=== PATIENT | male | born 1945 | race Caucasian/White ===

== ENCOUNTER 2021-05-07 04:07 | Emergency (ER) | payer MEDICARE, OTHER ==
[2021-05-07] MEDS ORDERED: Aspirin 81 MG Tab.Chew PO ONE (04:21)
--- NOTE | 2021-05-07 04:27 | EDM.PDOC ---
ED HPI GENERAL MEDICAL PROBLEM - General Chief Complaint: Chest Pain Stated Complaint: CHEST PAINS, UNABLE TO SLEEP Time Seen by Provider: 05/07/21 04:25 Source of Information: Reports: Patient History Limitations: Reports: No Limitations - History of Present Illness INITIAL COMMENTS - FREE TEXT/NARRATIVE: This 76 yo male patient reports to the ED due to pains in his right abdomen that radiates up to his right chest. The patient reports he has been having intermittent pains over the past month, but increased symptoms that started last night at about 1700. The patient has not been seen in the clinic for these symptoms and has not attempted to take anything for his symptoms over the night. The patient reports he could not sleep due to the "crampy pain". Duration: Hour(s): (increased symptoms), Week(s): (Intermittent), Constant, Intermittent Location: Reports: Chest, Abdomen Quality: Reports: Other ("crampy" ) Severity: Moderate Improves with: Reports: None Worsens with: Reports: Eating Context: Reports: Other Associated Symptoms: Reports: No Other Symptoms Bilateral Lower Anterior Chest Pain Score (Numeric/FACES): 3 - Related Data Allergies Allergy/AdvReac Type Severity Reaction Status Date / Time niacin Allergy Hives Verified 05/07/21 04:14 [From Niaspan Extended-Release] rabeprazole [From Aciphex] AdvReac Diarrhea Verified 05/07/21 04:14 Home Meds: Home Meds Aspirin [Halfprin] 81 mg PO DAILY 10/06/13 [History] Bisoprolol/Hydrochlorothiazide [Ziac 10-6.25 mg Tablet] 6.25 - 10 each PO BID 10/06/13 [History] Ferrous Sulfate [Feosol] 325 mg PO DAILY 10/06/13 [History] Simvastatin [Zocor] 40 mg PO BEDTIME 10/06/13 [History] Cholecalciferol (Vitamin D3) [Vitamin D3] 2,000 units PO DAILY 01/07/18 [History] Empagliflozin/Linagliptin [Glyxambi 10 mg-5 mg Tablet] 5 - 10 mg PO DAILY 01/07/18 [History] Fenofibrate Nanocrystallized [Tricor] 145 mg PO DAILY 01/07/18 [History] Insulin Glarg,Human.Rec.Analog [Lantus Solostar] 54 units INJECT BEDTIME 01/07/18 [History] Omeprazole 40 mg PO DAILY 01/07/18 [History] Telmisartan/Hydrochlorothiazid [Micardis Hct 40-12.5 mg Tablet] 0.5 ea PO DAILY 01/07/18 [History] Finasteride [Proscar] 5 mg PO DAILY 05/07/21 [History] Insulin Aspart [Novolog Flexpen] 17 units SUBCUT TIDAC 05/07/21 [History] Melatonin 5 mg PO BEDTIME 05/07/21 [History] Past Medical History Cardiovascular History: Reports: High Cholesterol, Hypertension Genitourinary History: Reports: BPH Neurological History: Reports: Other (See Below) Other Neuro History: seeing Dr. Redd for a tremor soon Endocrine/Metabolic History: Reports: Diabetes, Type II - Past Surgical History Cardiovascular Surgical History: Reports: Coronary Artery Stent Social & Family History - Tobacco Use Tobacco Use Status *Q: Never Tobacco User - Caffeine Use Caffeine Use: Reports: Coffee - Recreational Drug Use Recreational Drug Use: No ED ROS GENERAL - Review of Systems Review Of Systems: Comprehensive ROS is negative, except as noted in HPI. ED EXAM, GENERAL - Physical Exam Exam: See Below Exam Limited By: No Limitations General Appearance: Alert, WD/WN, Anxious, Mild Distress, Obese Eye Exam: Bilateral Eye: EOMI, Normal Fundi, PERRL Ears: Normal External Exam, Normal Canal, Hearing Grossly Normal, Normal TMs Nose: Normal Inspection, Normal Mucosa, No Blood Throat/Mouth: Normal Inspection, Normal Lips, Normal Teeth, Normal Gums, Normal Oropharynx, Normal Voice, No Airway Compromise Head: Atraumatic, Normocephalic Neck: Normal Inspection, Supple, Non-Tender, Full Range of Motion Respiratory/Chest: No Respiratory Distress, Lungs Clear, Normal Breath Sounds, No Accessory Muscle Use, Chest Non-Tender Cardiovascular: Normal Peripheral Pulses, Regular Rate, Rhythm, No Edema, No Gallop, No JVD, No Murmur, No Rub GI/Abdominal: Tender (right mid abdomen with tenderness extending to just below the ribs on the right), Other (Obese) (Male) Exam: Deferred Rectal (Males) Exam: Deferred Back Exam: Normal Inspection, Full Range of Motion, NT Extremities: Normal Inspection, Normal Range of Motion, Non-Tender, Normal Capillary Refill, No Pedal Edema Neurological: Alert, Oriented, CN II-XII Intact, Normal Cognition, Normal Gait, Normal Reflexes, No Motor/Sensory Deficits Psychiatric: Normal Affect, Anxious Skin Exam: Warm, Dry, Intact, Normal Color, No Rash Lymphatic: No Adenopathy #1 Interpretation EKG Date: 05/07/21 Time: 04:12 Rhythm: Other (RBBB) Rate (Beats/Min): 63 QRS: RBBB Comparison: Change From Previous EKG (Previous EKG was in 2013 in this facility) Course - Vital Signs Last Recorded V/S: Last Vital Signs Temp 97.4 F 05/07/21 04:14 Pulse 73 05/07/21 04:14 Resp 16 05/07/21 04:14 BP 162/61 H 05/07/21 04:14 Pulse Ox 96 05/07/21 04:14 - Orders/Labs/Meds Orders: Active Orders 24 hr Category Date Time Status CULTURE BLOOD [BC] Stat Lab 05/07/21 04:25 Results Labs: Laboratory Tests 05/07/21 05/07/21 05/07/21 Range/Units 04:25 04:25 04:25 WBC 8.6 (5.0-10.0) 10^3/uL RBC 4.54 L (4.6-6.2) 10^6/uL Hgb 13.8 L (14.0-18.0) g/dL Hct 41.8 (40.0-54.0) % MCV 92.1 D (80-100) fL MCH 30.4 (27.0-34.0) pg MCHC 33.0 (33.0-35.0) g/dL Plt Count 204 (150-450) 10^3/uL Neut % (Auto) 67.6 (42.2-75.2) % Lymph % (Auto) 19.8 L (20.5-50.1) % Sebastian % (Auto) 10.1 H (2-8) % Eos % (Auto) 2.0 (1.0-3.0) % Baso % (Auto) 0.5 (0.0-1.0) % D-Dimer, Quantitative 113 (0-400) ng/mL Sodium 136 (136-145) mmol/L Potassium 4.2 (3.5-5.1) mmol/L Chloride 102 (98-107) mmol/L Carbon Dioxide 23 (21-32) mmol/L Anion Gap 15.2 H (7-13) mEq/L BUN 46 H (7-18) mg/dL Creatinine 2.36 H (0.70-1.30) mg/dL Est Cr Clr Drug Dosing 25.80 mL/min Estimated GFR (MDRD) 27 BUN/Creatinine Ratio 19.5 (No establ ref range) Glucose 220 H (70-99) mg/dL Lactic Acid (0.4-2.0) mmol/L Calcium 8.8 (8.5-10.1) mg/dL Total Bilirubin 0.3 (0.2-1.0) mg/dL AST 23 (15-37) U/L ALT 31 (16-63) U/L Alkaline Phosphatase 69 (46-116) U/L Troponin I High Sens 6 (<=76) pg/mL Total Protein 6.6 (6.4-8.2) g/dL Albumin 3.5 (3.4-5.0) g/dL Globulin 3.1 Albumin/Globulin Ratio 1.1 05/07/21 Range/Units 04:25 WBC (5.0-10.0) 10^3/uL RBC (4.6-6.2) 10^6/uL Hgb (14.0-18.0) g/dL Hct (40.0-54.0) % MCV (80-100) fL MCH (27.0-34.0) pg MCHC (33.0-35.0) g/dL Plt Count (150-450) 10^3/uL Neut % (Auto) (42.2-75.2) % Lymph % (Auto) (20.5-50.1) % Sebastian % (Auto) (2-8) % Eos % (Auto) (1.0-3.0) % Baso % (Auto) (0.0-1.0) % D-Dimer, Quantitative (0-400) ng/mL Sodium (136-145) mmol/L Potassium (3.5-5.1) mmol/L Chloride (98-107) mmol/L Carbon Dioxide (21-32) mmol/L Anion Gap (7-13) mEq/L BUN (7-18) mg/dL Creatinine (0.70-1.30) mg/dL Est Cr Clr Drug Dosing mL/min Estimated GFR (MDRD) BUN/Creatinine Ratio (No establ ref range) Glucose (70-99) mg/dL Lactic Acid 1.8 (0.4-2.0) mmol/L Calcium (8.5-10.1) mg/dL Total Bilirubin (0.2-1.0) mg/dL AST (15-37) U/L ALT (16-63) U/L Alkaline Phosphatase (46-116) U/L Troponin I High Sens (<=76) pg/mL Total Protein (6.4-8.2) g/dL Albumin (3.4-5.0) g/dL Globulin Albumin/Globulin Ratio Meds: Medications Discontinued Medications Generic Name Dose Route Start Last Admin Trade Name Freq PRN Reason Stop Dose Admin Aspirin 324 mg 05/07/21 04:21 05/07/21 04:29 Aspirin 81 Mg Tab.Chew PO 05/07/21 04:22 324 mg ONETIME ONE Administration - Radiology Interpretation Free Text/Narrative:: [facility] Final Radiology Report Call: [phone] assistance Online chat: [email or web address] Name: AKASH TELLEZ Age: 76Years M Date: 05/07/2021 SSN: -- : [id number] Study: CR CHEST 1V FRONTAL Requesting Physician: Donald Henao Images: 1 Addl Studies: Provided Clinical History: chest pain Contrast: Contrast Medium: Contrast Amount: Contrast Method: CONFIDENTIALITY STATEMENT This report is intended only for use by the referring physician, and only in accordance with law. If you received this in error, call [phone]. Page 1 of 1 PROCEDURE INFORMATION: Exam: XR Chest Exam date and time: 05/07/2021 4:47 AM Age: 76 years old Clinical indication: Other: Chest pain TECHNIQUE: Imaging protocol: XR of the chest. Views: 1 view. COMPARISON: No relevant prior studies available. FINDINGS: Lungs: Unremarkable. No consolidation. Pleural spaces: Unremarkable. No pleural effusion. No pneumothorax. Heart/Mediastinum: Unremarkable. No cardiomegaly. Bones/joints: Unremarkable. IMPRESSION: No acute findings. Thank you for allowing us to participate in the care of your patient. Dictated and Authenticated by: Maxime Burnette MD 05/07/2021 5:22 AM Central Time ([place] & [place]) Departure - Departure Time of Disposition: 05:28 Disposition: Home, Self-Care 01 Condition: Fair Clinical Impression: Abdominal pain Qualifiers: Abdominal location: right upper quadrant Qualified Code(s): R10.11 - Right upper quadrant pain Instructions: Abdominal Pain, Adult, Gallbladder Eating Plan Forms: ED Department Discharge Care Plan Goals: The patient was advised of the examination, lab, EKG and x-ray results during the visit. The patient was encouraged to avoid high fat meals. If the patient jay s a return of his symptoms, the patient was encouraged to follow-up with his primary care facility to get further evaluation (gallbladder ultrasound) and management. If the patient has any additional symptoms or concerns, the patient should either return to the emergency department or visit his primary care facility. Sepsis Event Note (ED) - Evaluation Sepsis Screening Result: No Definite Risk - Focused Exam Vital Signs: Vital Signs Temp Pulse Resp BP Pulse Ox 05/07/21 04:14 97.4 F 73 16 162/61 H 96 - My Orders Last 24 Hours: My Active Orders 05/07/21 04:25 CULTURE BLOOD [BC] Stat - Assessment/Plan Last 24 Hours: My Active Orders 05/07/21 04:25 CULTURE BLOOD [BC] Stat
[2021-05-07 04:59] LABS: ANION GAP 15.2 mEq/L (7-13)
--- NOTE | 2021-05-07 05:22 | CR ---
PROCEDURE INFORMATION: Exam: XR Chest Exam date and time: 05/07/2021 4:47 AM Age: 76 years old Clinical indication: Other: Chest pain TECHNIQUE: Imaging protocol: XR of the chest. Views: 1 view. COMPARISON: No relevant prior studies available. FINDINGS: Lungs: Unremarkable. No consolidation. Pleural spaces: Unremarkable. No pleural effusion. No pneumothorax. Heart/Mediastinum: Unremarkable. No cardiomegaly. Bones/joints: Unremarkable. IMPRESSION: No acute findings.
== END 2021-05-07 05:43 | disposition home or self-care (01) ==
LOC: DL.ED 04:07
DX: R10.11 Right upper quadrant pain (principal); E78.00 Pure hypercholesterolemia, unspecified; I10 Essential (primary) hypertension; E11.9 Type 2 diabetes mellitus without complications; I45.10 Unspecified right bundle-branch block; E66.9 Obesity, unspecified; Z68.33 Body mass index [BMI] 33.0-33.9, adult; Z88.8 Allergy status to other drugs, medicaments and biological substances; Z88.1 Allergy status to other antibiotic agents; Z79.82 Long term (current) use of aspirin; Z79.4 Long term (current) use of insulin; Z79.899 Other long term (current) drug therapy
CPT/HCPCS: 36415; 71045; 80053; 83605; 84484; 85025; 85379; 87040; 93005; 99284; A9270

== ENCOUNTER 2021-05-20 21:42 | Emergency (ER) | payer MEDICARE, OTHER | END 2021-05-21 01:35 | disposition home or self-care (01) | LOC: DL.ED 21:42 | DX: K59.01 Slow transit constipation (principal); L89.321 Pressure ulcer of left buttock, stage 1; E78.00 Pure hypercholesterolemia, unspecified; I10 Essential (primary) hypertension; N40.0 Benign prostatic hyperplasia without lower urinary tract symptoms; E11.9 Type 2 diabetes mellitus without complications; Z88.1 Allergy status to other antibiotic agents; Z88.8 Allergy status to other drugs, medicaments and biological substances; Z79.82 Long term (current) use of aspirin; Z79.4 Long term (current) use of insulin; Z79.899 Other long term (current) drug therapy | CPT/HCPCS: 74018; 99283-25 ==

== ENCOUNTER 2021-11-24 21:59 | Emergency (ER) | payer MEDICARE, OTHER ==
[2021-11-24 23:14] LABS: ANION GAP 19.4 mEq/L (7-13); CHLORIDE,CL 102 mmol/L (98-107); SODIUM,NA 139 mmol/L (136-145)
[2021-11-24 23:15] LABS: ESTIMATED GFR 27 mL/min (>=60)
[2021-11-25] MEDS ORDERED: Sodium Chloride 0.9% 1,000 ML IV ONE (00:35)
[2021-11-25] MEDS ORDERED: Piperacillin/Tazobactam 3.375 GM in Sodium Chloride 0.9% 100 ML IV ONE (01:10)
[2021-11-25] MEDS ORDERED: Acetaminophen 325 MG Tab PO ONE (01:11)
== END 2021-11-25 03:47 ==
LOC: DL.ED 21:59
DX: T79.6XXA Traumatic ischemia of muscle, initial encounter (principal); S20.419A Abrasion of unspecified back wall of thorax, initial encounter; K81.9 Cholecystitis, unspecified; E86.0 Dehydration; L89.152 Pressure ulcer of sacral region, stage 2; I12.9 Hypertensive chronic kidney disease with stage 1 through stage 4 chronic kidney disease, or unspecified chronic kidney disease; E11.22 Type 2 diabetes mellitus with diabetic chronic kidney disease; N18.9 Chronic kidney disease, unspecified; E78.00 Pure hypercholesterolemia, unspecified; Z88.8 Allergy status to other drugs, medicaments and biological substances; Z79.82 Long term (current) use of aspirin; Z79.899 Other long term (current) drug therapy; W17.89XA Other fall from one level to another, initial encounter; Y92.009 Unspecified place in unspecified non-institutional (private) residence as the place of occurrence of the external cause
CPT/HCPCS: 36415; 70450; 71250; 72125; 72128; 72131; 74176; 80053; 80307; 81003; 82150; 82550; 83605; 83690; 83735; 83880; 84484; 85025; 85610; 93005; 96361; 96365; 99285; A9270; J2543; J7030; U0002

== ENCOUNTER 2021-11-29 11:07 | Inpatient (IN) | payer MEDICARE, OTHER ==
[2021-11-29] MEDS ORDERED: Ondansetron 4 MG Tab.DIS PO PRN (14:55)
[2021-11-29] MEDS ORDERED: oxyCODONE 5 MG Tab PO PRN (14:55)
[2021-11-29] MEDS ORDERED: Albuterol 0.083% 2.5 MG/3 ML Neb Soln NEB PRN (14:55)
[2021-11-29] MEDS ORDERED: hydrALAZINE 20 MG/ML SDV IVPUSH PRN (15:07)
[2021-11-29] MEDS ORDERED: Carbidopa/Levodopa 25-100 MG Tab PO SCH (15:15)
[2021-11-29] MEDS ORDERED: amLODIPine 5 MG Tab PO SCH (15:15)
[2021-11-29 15:55] LABS: HEMOGLOBIN A1C 6.6 % (<5.7)
[2021-11-29] MEDS: Carbidopa/Levodopa 25-100 MG Tab PO SCH ×2 (16:08→21:15)
[2021-11-29] MEDS: Insulin Lispro 100 Units/ML 3 ML Vial SUBCUT SCH ×2 (16:14→21:12)
[2021-11-29] MEDS ORDERED: Sodium Chloride 0.45% 1,000 ML IV SCH (16:15)
[2021-11-29] MEDS: Saccharomyces Boulardii (Probiotic) 250 MG Cap PO SCH ×2 (16:27→21:15)
[2021-11-29] MEDS: Phosphorus #1 250 MG Tab PO SCH ×2 (16:27→21:15)
[2021-11-29] MEDS ORDERED: Insulin Lispro 100 Units/ML 3 ML Vial SUBCUT SCH (17:00)
[2021-11-29] MEDS ORDERED: Metoprolol Tartrate 25 MG Tab PO SCH (21:00)
[2021-11-29] MEDS: Heparin Sodium 5,000 Units/ML Vial SUBCUT SCH (21:11)
[2021-11-29] MEDS: Insulin Glarg,Human.Rec.Analog 100 Unit/ML SUBCUT SCH (21:13)
[2021-11-29] MEDS: Cephalexin 500 MG Cap PO SCH (21:15)
[2021-11-29] MEDS: MELATONIN 5 MG PO PRN (21:19)
[2021-11-29] MEDS: Acetaminophen 325 MG Tab PO PRN (22:38)
[2021-11-30] MEDS: Cephalexin 500 MG Cap PO SCH ×3 (05:34→21:19)
[2021-11-30] MEDS: Heparin Sodium 5,000 Units/ML Vial SUBCUT SCH ×3 (05:35→21:23)
[2021-11-30 07:03] LABS: ANION GAP 11.7 mEq/L (7-13)
[2021-11-30] MEDS: Ferrous Sulfate 325 MG Tab PO SCH (08:36)
[2021-11-30] MEDS: Omeprazole 20 MG Cap.CR PO SCH (09:00)
[2021-11-30] MEDS: Aspirin 81 MG Tab.EC PO SCH (09:00)
[2021-11-30] MEDS: Saccharomyces Boulardii (Probiotic) 250 MG Cap PO SCH ×2 (09:00→20:06)
[2021-11-30] MEDS: Carbidopa/Levodopa 25-100 MG Tab PO SCH ×3 (09:01→20:06)
[2021-11-30] MEDS: Finasteride 5 MG Tab PO SCH (09:01)
[2021-11-30] MEDS: Cholecalciferol (Vitamin D3) 25 MCG Tab PO SCH (09:01)
[2021-11-30] MEDS: LINAGLIPTIN PO SCH (09:02)
[2021-11-30] MEDS: EMPAGLIFLOZIN PO SCH (09:02)
[2021-11-30] MEDS: amLODIPine 5 MG Tab PO SCH (09:03)
[2021-11-30] MEDS: Insulin Lispro 100 Units/ML 3 ML Vial SUBCUT SCH ×3 (11:58→21:22)
[2021-11-30] MEDS: MELATONIN 5 MG PO PRN (20:06)
[2021-11-30] MEDS: Insulin Glarg,Human.Rec.Analog 100 Unit/ML SUBCUT SCH (21:20)
[2021-12-01] MEDS: Acetaminophen 325 MG Tab PO PRN ×3 (05:45→21:38)
[2021-12-01] MEDS: Cephalexin 500 MG Cap PO SCH ×3 (05:45→21:38)
[2021-12-01] MEDS: Heparin Sodium 5,000 Units/ML Vial SUBCUT SCH ×3 (05:49→21:43)
[2021-12-01] MEDS: Insulin Lispro 100 Units/ML 3 ML Vial SUBCUT SCH ×4 (07:29→21:45)
[2021-12-01] MEDS: Ferrous Sulfate 325 MG Tab PO SCH (08:00)
[2021-12-01] MEDS ORDERED: hydrALAZINE 25 MG Tab PO PRN (09:07)
[2021-12-01] MEDS: Carbidopa/Levodopa 25-100 MG Tab PO SCH ×3 (09:33→21:38)
[2021-12-01] MEDS: Saccharomyces Boulardii (Probiotic) 250 MG Cap PO SCH ×2 (09:33→21:38)
[2021-12-01] MEDS: Cholecalciferol (Vitamin D3) 25 MCG Tab PO SCH (09:33)
[2021-12-01] MEDS: Omeprazole 20 MG Cap.CR PO SCH (09:33)
[2021-12-01] MEDS: Aspirin 81 MG Tab.EC PO SCH (09:33)
[2021-12-01] MEDS: amLODIPine 5 MG Tab PO SCH (09:33)
[2021-12-01] MEDS: Finasteride 5 MG Tab PO SCH (09:33)
[2021-12-01] MEDS: EMPAGLIFLOZIN PO SCH (09:34)
[2021-12-01] MEDS: LINAGLIPTIN PO SCH (09:34)
[2021-12-01] MEDS: MELATONIN 5 MG PO PRN (21:39)
[2021-12-01] MEDS: Insulin Glarg,Human.Rec.Analog 100 Unit/ML SUBCUT SCH (21:41)
[2021-12-02] MEDS: Cephalexin 500 MG Cap PO SCH ×3 (05:54→21:01)
[2021-12-02] MEDS: Heparin Sodium 5,000 Units/ML Vial SUBCUT SCH ×3 (05:54→21:01)
[2021-12-02] MEDS ORDERED: amLODIPine 5 MG Tab PO SCH (09:00)
[2021-12-02] MEDS: Ferrous Sulfate 325 MG Tab PO SCH (09:04)
[2021-12-02] MEDS: Aspirin 81 MG Tab.EC PO SCH (09:04)
[2021-12-02] MEDS: Saccharomyces Boulardii (Probiotic) 250 MG Cap PO SCH ×2 (09:04→20:31)
[2021-12-02] MEDS: Omeprazole 20 MG Cap.CR PO SCH (09:04)
[2021-12-02] MEDS: Carbidopa/Levodopa 25-100 MG Tab PO SCH ×3 (09:04→20:33)
[2021-12-02] MEDS: Cholecalciferol (Vitamin D3) 25 MCG Tab PO SCH (09:06)
[2021-12-02] MEDS: Finasteride 5 MG Tab PO SCH (09:06)
[2021-12-02] MEDS: Insulin Lispro 100 Units/ML 3 ML Vial SUBCUT SCH ×4 (09:08→20:32)
[2021-12-02] MEDS: EMPAGLIFLOZIN PO SCH (09:09)
[2021-12-02] MEDS: LINAGLIPTIN PO SCH (09:09)
[2021-12-02] MEDS: Insulin Glarg,Human.Rec.Analog 100 Unit/ML SUBCUT SCH (20:32)
[2021-12-02] MEDS: Acetaminophen 325 MG Tab PO PRN (20:35)
[2021-12-02] MEDS: MELATONIN 5 MG PO PRN (20:35)
[2021-12-03] MEDS: Heparin Sodium 5,000 Units/ML Vial SUBCUT SCH ×3 (05:46→21:31)
[2021-12-03] MEDS: Cephalexin 500 MG Cap PO SCH ×3 (05:46→21:30)
[2021-12-03] MEDS: Ferrous Sulfate 325 MG Tab PO SCH (07:56)
[2021-12-03] MEDS: Insulin Lispro 100 Units/ML 3 ML Vial SUBCUT SCH ×4 (09:36→20:51)
[2021-12-03] MEDS: Finasteride 5 MG Tab PO SCH (09:37)
[2021-12-03] MEDS: Omeprazole 20 MG Cap.CR PO SCH (09:37)
[2021-12-03] MEDS: Saccharomyces Boulardii (Probiotic) 250 MG Cap PO SCH ×2 (09:37→20:51)
[2021-12-03] MEDS: Aspirin 81 MG Tab.EC PO SCH (09:37)
[2021-12-03] MEDS: Cholecalciferol (Vitamin D3) 25 MCG Tab PO SCH (09:38)
[2021-12-03] MEDS: Carbidopa/Levodopa 25-100 MG Tab PO SCH ×3 (09:38→20:51)
[2021-12-03] MEDS: LINAGLIPTIN PO SCH (09:38)
[2021-12-03] MEDS: EMPAGLIFLOZIN PO SCH (09:38)
[2021-12-03] MEDS: amLODIPine 5 MG Tab PO SCH (09:39)
[2021-12-03] MEDS: Insulin Glarg,Human.Rec.Analog 100 Unit/ML SUBCUT SCH (20:52)
[2021-12-03] MEDS: MELATONIN 5 MG PO PRN (20:53)
[2021-12-04] MEDS: Cephalexin 500 MG Cap PO SCH (06:05)
[2021-12-04] MEDS: Heparin Sodium 5,000 Units/ML Vial SUBCUT SCH ×3 (06:05→21:30)
[2021-12-04] MEDS: Insulin Lispro 100 Units/ML 3 ML Vial SUBCUT SCH ×3 (08:26→18:25)
[2021-12-04 09:19] LABS: ANION GAP 15.6 mEq/L (7-13)
[2021-12-04] MEDS: Finasteride 5 MG Tab PO SCH (09:46)
[2021-12-04] MEDS: Ferrous Sulfate 325 MG Tab PO SCH (09:46)
[2021-12-04] MEDS: Aspirin 81 MG Tab.EC PO SCH (09:46)
[2021-12-04] MEDS: Cholecalciferol (Vitamin D3) 25 MCG Tab PO SCH (09:46)
[2021-12-04] MEDS: Hydrochlorothiazide 25 MG Tab PO SCH ×2 (09:46→14:43)
[2021-12-04] MEDS: Carbidopa/Levodopa 25-100 MG Tab PO SCH ×3 (09:46→20:34)
[2021-12-04] MEDS: Saccharomyces Boulardii (Probiotic) 250 MG Cap PO SCH ×2 (09:46→20:34)
[2021-12-04] MEDS: Omeprazole 20 MG Cap.CR PO SCH (09:47)
[2021-12-04] MEDS: amLODIPine 5 MG Tab PO SCH (09:47)
[2021-12-04] MEDS: EMPAGLIFLOZIN PO SCH (09:54)
[2021-12-04] MEDS: LINAGLIPTIN PO SCH (09:54)
[2021-12-04] MEDS: Propranolol 20 MG Tab PO SCH (20:34)
[2021-12-04] MEDS: Acetaminophen 325 MG Tab PO PRN (20:34)
[2021-12-04] MEDS ORDERED: Insulin Glarg,Human.Rec.Analog 100 Unit/ML SUBCUT SCH (21:00)
[2021-12-04] MEDS: Insulin Glarg,Human.Rec.Analog 100 Unit/ML SUBCUT SCH (21:28)
[2021-12-04] MEDS: MELATONIN 5 MG PO PRN (21:33)
[2021-12-05] MEDS: Heparin Sodium 5,000 Units/ML Vial SUBCUT SCH ×3 (05:39→21:00)
[2021-12-05] MEDS: Losartan 25 MG Tab PO SCH (08:43)
[2021-12-05] MEDS: Propranolol 20 MG Tab PO SCH ×2 (08:43→20:54)
[2021-12-05] MEDS: Ferrous Sulfate 325 MG Tab PO SCH (08:44)
[2021-12-05] MEDS: Hydrochlorothiazide 25 MG Tab PO SCH ×2 (08:44→13:20)
[2021-12-05] MEDS: Carbidopa/Levodopa 25-100 MG Tab PO SCH ×3 (08:44→20:54)
[2021-12-05] MEDS: amLODIPine 5 MG Tab PO SCH (08:44)
[2021-12-05] MEDS: Aspirin 81 MG Tab.EC PO SCH (08:44)
[2021-12-05] MEDS: Cholecalciferol (Vitamin D3) 25 MCG Tab PO SCH (08:44)
[2021-12-05] MEDS: Finasteride 5 MG Tab PO SCH (08:44)
[2021-12-05] MEDS: EMPAGLIFLOZIN PO SCH (08:45)
[2021-12-05] MEDS: Omeprazole 20 MG Cap.CR PO SCH (08:45)
[2021-12-05] MEDS: LINAGLIPTIN PO SCH (08:45)
[2021-12-05] MEDS: Saccharomyces Boulardii (Probiotic) 250 MG Cap PO SCH ×2 (08:45→20:54)
[2021-12-05] MEDS: Insulin Lispro 100 Units/ML 3 ML Vial SUBCUT SCH ×2 (08:49→11:53)
[2021-12-05] MEDS ORDERED: Losartan 25 MG Tab PO SCH (09:00)
[2021-12-05] MEDS ORDERED: Metoprolol Tartrate 25 MG Tab PO SCH (09:00)
[2021-12-05] MEDS ORDERED: Losartan 50 MG Tab PO SCH (09:00)
[2021-12-05] MEDS ORDERED: Melatonin 3 MG Tab PO PRN ×2 (20:45→20:49)
[2021-12-05] MEDS: MELATONIN 5 MG PO PRN (20:51)
[2021-12-05] MEDS: Insulin Glarg,Human.Rec.Analog 100 Unit/ML SUBCUT SCH (20:53)
[2021-12-06] MEDS: Heparin Sodium 5,000 Units/ML Vial SUBCUT SCH ×3 (06:08→21:47)
[2021-12-06] MEDS: Propranolol 20 MG Tab PO SCH ×2 (08:39→21:47)
[2021-12-06] MEDS: Finasteride 5 MG Tab PO SCH (08:40)
[2021-12-06] MEDS: Losartan 25 MG Tab PO SCH (08:40)
[2021-12-06] MEDS: amLODIPine 5 MG Tab PO SCH (08:41)
[2021-12-06] MEDS: Carbidopa/Levodopa 25-100 MG Tab PO SCH ×3 (08:41→21:47)
[2021-12-06] MEDS: Ferrous Sulfate 325 MG Tab PO SCH (08:42)
[2021-12-06] MEDS: Cholecalciferol (Vitamin D3) 25 MCG Tab PO SCH (08:42)
[2021-12-06] MEDS: Omeprazole 20 MG Cap.CR PO SCH (08:42)
[2021-12-06] MEDS: Hydrochlorothiazide 25 MG Tab PO SCH ×2 (08:42→17:21)
[2021-12-06] MEDS: LINAGLIPTIN PO SCH (08:43)
[2021-12-06] MEDS: EMPAGLIFLOZIN PO SCH (08:43)
[2021-12-06] MEDS: Saccharomyces Boulardii (Probiotic) 250 MG Cap PO SCH ×2 (08:44→21:47)
[2021-12-06] MEDS: Aspirin 81 MG Tab.EC PO SCH (08:45)
[2021-12-06] MEDS: Insulin Lispro 100 Units/ML 3 ML Vial SUBCUT SCH ×3 (08:48→17:30)
[2021-12-06] MEDS ORDERED: Hydrochlorothiazide 25 MG Tab PO ONE (14:10)
[2021-12-06] MEDS ORDERED: Carbidopa/Levodopa 25-100 MG Tab PO ONE (14:10)
[2021-12-06] MEDS ORDERED: Heparin Sodium 5,000 Units/ML Vial IVPUSH ONE (14:20)
[2021-12-06] MEDS: Insulin Glarg,Human.Rec.Analog 100 Unit/ML SUBCUT SCH (21:48)
[2021-12-06] MEDS: MELATONIN 5 MG PO PRN (21:49)
[2021-12-07] MEDS: Heparin Sodium 5,000 Units/ML Vial SUBCUT SCH (05:52)
[2021-12-07] MEDS: Ferrous Sulfate 325 MG Tab PO SCH (09:00)
[2021-12-07] MEDS: Hydrochlorothiazide 25 MG Tab PO SCH (09:01)
[2021-12-07] MEDS: Carbidopa/Levodopa 25-100 MG Tab PO SCH (09:02)
[2021-12-07] MEDS: Aspirin 81 MG Tab.EC PO SCH (09:02)
[2021-12-07] MEDS: Saccharomyces Boulardii (Probiotic) 250 MG Cap PO SCH (09:02)
[2021-12-07] MEDS: Cholecalciferol (Vitamin D3) 25 MCG Tab PO SCH (09:03)
[2021-12-07] MEDS: Losartan 25 MG Tab PO SCH (09:04)
[2021-12-07] MEDS: Propranolol 20 MG Tab PO SCH (09:04)
[2021-12-07] MEDS: Omeprazole 20 MG Cap.CR PO SCH (09:05)
[2021-12-07] MEDS: Finasteride 5 MG Tab PO SCH (09:06)
[2021-12-07] MEDS: amLODIPine 5 MG Tab PO SCH (09:06)
[2021-12-07] MEDS: EMPAGLIFLOZIN PO SCH (09:07)
[2021-12-07] MEDS: LINAGLIPTIN PO SCH (09:07)
[2021-12-07] MEDS: Insulin Lispro 100 Units/ML 3 ML Vial SUBCUT SCH (09:09)
[2021-12-07] MEDS ORDERED: Insulin Lispro 100 Units/ML 3 ML Vial SUBCUT SCH (12:00)
== END 2021-12-07 10:20 | disposition home or self-care (01) | DRG 948 ==
LOC: DL.MS 13:25 → UNDOADMIN 13:25
PROVIDERS: ADMIT Internal Medicine; ATTEND Internal Medicine
DX: R53.1 Weakness (principal); M62.82 Rhabdomyolysis; K81.0 Acute cholecystitis; L03.031 Cellulitis of right toe; Z66 Do not resuscitate; E66.9 Obesity, unspecified; Z20.822 Contact with and (suspected) exposure to COVID-19; E78.00 Pure hypercholesterolemia, unspecified; E11.22 Type 2 diabetes mellitus with diabetic chronic kidney disease; G20 Parkinson's disease; I12.9 Hypertensive chronic kidney disease with stage 1 through stage 4 chronic kidney disease, or unspecified chronic kidney disease; N18.30 Chronic kidney disease, stage 3 unspecified; Z68.32 Body mass index [BMI] 32.0-32.9, adult; Z79.82 Long term (current) use of aspirin; Z79.899 Other long term (current) drug therapy; Z95.5 Presence of coronary angioplasty implant and graft; Z79.4 Long term (current) use of insulin; Z88.8 Allergy status to other drugs, medicaments and biological substances
CPT/HCPCS: 36415; 80048; 80053; 82550; 82947; 83036; 83735; 83880; 84100; 85025; 85610; 87040; 87070; 87081; 87205; 93005; 97110-GO; 97110-GP; 97116-GP; 97161-GP; 97165-GO; 97530-GO; 97535-GO; 99305; 99307; 99315; A9270-GY; J1644; J1815-GY; U0002

== ENCOUNTER 2022-03-21 08:21 | Day surgery (SDC) | payer MEDICARE, OTHER ==
[2022-03-21] MEDS ORDERED: Sodium Chloride 0.9% 10 ML Syringe IV ONE (08:22)
[2022-03-21] MEDS ORDERED: Midazolam 1 MG/ML 2 ML SDV IV ONE (08:22)
[2022-03-21] MEDS ORDERED: Dexamethasone 4 MG/ML SDV IV ONE (08:22)
[2022-03-21] MEDS ORDERED: Tropicamide 1% Ophth Soln 15 ML Bottle EYELF ONE (08:30)
[2022-03-21] MEDS ORDERED: Povidone-Iodine 5% Sterile Ophth Soln 30 ML Bottle EYELF ONE ×2 (08:30→09:27)
[2022-03-21] MEDS ORDERED: Moxifloxacin 0.5% Ophth Soln 3 ML Bottle EYELF ONE (08:30)
[2022-03-21] MEDS ORDERED: Acetaminophen/Codeine 300-30 MG Tab PO PRN (08:30)
[2022-03-21] MEDS ORDERED: Sodium Chloride 0.9% 10 ML Syringe FLUSH PRN (08:30)
[2022-03-21] MEDS ORDERED: Timolol Maleate 0.5% Ophth Soln 5 ML Bottle EYELF ONE (08:30)
[2022-03-21] MEDS ORDERED: Acetaminophen 325 MG Tab PO PRN (08:30)
[2022-03-21] MEDS ORDERED: Proparacaine 0.5% Ophth Soln 15 ML Bottle EYELF ONE ×2 (08:30→09:26)
[2022-03-21] MEDS ORDERED: Phenylephrine 10% Ophth Soln 5 ML Bot EYELF PRN (08:30)
[2022-03-21] MEDS ORDERED: Cataract Ophth Solution EYELF ONE (08:30)
[2022-03-21] MEDS ORDERED: Ondansetron 4 MG/2 ML SDV IVPUSH PRN (08:30)
[2022-03-21] MEDS ORDERED: Lidocaine 1% 30 ML SDV ONE (09:31)
[2022-03-21] MEDS ORDERED: Chondroitin Sulfate/Hyaluronate Sodium Ophth Inj 0.75 ML Syringe EYELF ONE (09:31)
[2022-03-21] MEDS ORDERED: Balanced Salt Solution Ophth Irrig 500 ML Bottle IOCULAR ONE (09:32)
[2022-03-21] MEDS ORDERED: Vancomycin 500 MG SDV EYELF ONE (09:33)
[2022-03-21] MEDS ORDERED: Apraclonidine 0.5% Ophth Soln 5 ML Bot EYELF ONE (09:38)
[2022-03-21] MEDS ORDERED: Diclofenac Sodium 0.1% Ophth Soln 5 ML Bottle EYELF ONE (09:39)
[2022-03-21] MEDS ORDERED: Dexamethasone/Neomycin/Polymyxin B Ophth Oint 3.5 GM Tube EYELF ONE (09:40)
== END 2022-03-21 10:25 | disposition home or self-care (01) ==
LOC: DL.SDS 08:21
PROVIDERS: ATTEND Ophthalmology
DX: E11.36 Type 2 diabetes mellitus with diabetic cataract (principal); H25.812 Combined forms of age-related cataract, left eye; E78.5 Hyperlipidemia, unspecified; E66.09 Other obesity due to excess calories; K21.9 Gastro-esophageal reflux disease without esophagitis; M19.90 Unspecified osteoarthritis, unspecified site; D64.9 Anemia, unspecified; Z98.890 Other specified postprocedural states; Z79.899 Other long term (current) drug therapy; Z79.4 Long term (current) use of insulin; Z68.30 Body mass index [BMI] 30.0-30.9, adult; Z88.3 Allergy status to other anti-infective agents; Z88.8 Allergy status to other drugs, medicaments and biological substances
CPT/HCPCS: 00142; 66984; A9270; J1100; J2250; J3370; J3490; V2632

== ENCOUNTER 2022-04-04 08:43 | Day surgery (SDC) | payer MEDICARE, OTHER ==
[2022-04-04] MEDS: Proparacaine 0.5% Ophth Soln 15 ML Bottle EYERT ONE ×3 (07:40→10:16)
[2022-04-04] MEDS: Apraclonidine 0.5% Ophth Soln 5 ML Bot EYERT ONE ×2 (07:41→10:17)
[2022-04-04] MEDS: Povidone-Iodine 5% Sterile Ophth Soln 30 ML Bottle EYERT ONE ×3 (07:41→10:16)
[2022-04-04] MEDS: Dexamethasone/Neomycin/Polymyxin B Ophth Oint 3.5 GM Tube EYERT ONE ×2 (07:42→10:18)
[2022-04-04] MEDS: Diclofenac Sodium 0.1% Ophth Soln 5 ML Bottle EYERT ONE ×2 (07:42→10:17)
[2022-04-04] MEDS: Balanced Salt Solution Ophth Irrig 500 ML Bottle IOCULAR ONE ×2 (07:43→10:18)
[2022-04-04] MEDS: Lidocaine 1% 30 ML SDV ONE ×2 (07:43→10:18)
[2022-04-04] MEDS: Vancomycin 500 MG SDV EYERT ONE ×2 (07:43→10:18)
[2022-04-04] MEDS: Chondroitin Sulfate/Hyaluronate Sodium Ophth Inj 0.75 ML Syringe EYERT ONE ×2 (07:44→10:19)
[2022-04-04] MEDS ORDERED: Sodium Chloride 0.9% 10 ML Syringe IV ONE (08:44)
[2022-04-04] MEDS ORDERED: Midazolam 1 MG/ML 2 ML SDV IV ONE (08:44)
[2022-04-04] MEDS ORDERED: Dexamethasone 4 MG/ML SDV IV ONE (08:44)
[2022-04-04] MEDS ORDERED: Acetaminophen 325 MG Tab PO PRN (09:00)
[2022-04-04] MEDS ORDERED: Acetaminophen/Codeine 300-30 MG Tab PO PRN (09:00)
[2022-04-04] MEDS ORDERED: Ondansetron 4 MG/2 ML SDV IVPUSH PRN (09:00)
[2022-04-04] MEDS: Moxifloxacin 0.5% Ophth Soln 3 ML Bottle EYERT ONE (09:11)
[2022-04-04] MEDS: Tropicamide 1% Ophth Soln 15 ML Bottle EYERT ONE (09:13)
[2022-04-04] MEDS: Phenylephrine 10% Ophth Soln 5 ML Bot EYERT PRN (09:13)
[2022-04-04] MEDS: Timolol Maleate 0.5% Ophth Soln 5 ML Bottle EYERT ONE (09:14)
[2022-04-04] MEDS: Cataract Ophth Solution EYERT ONE (09:15)
[2022-04-04] MEDS: Sodium Chloride 0.9% 10 ML Syringe FLUSH PRN (09:16)
== END 2022-04-04 10:55 | disposition home or self-care (01) ==
LOC: DL.SDS 08:43
PROVIDERS: ATTEND Ophthalmology
DX: E11.36 Type 2 diabetes mellitus with diabetic cataract (principal); H25.811 Combined forms of age-related cataract, right eye; E78.5 Hyperlipidemia, unspecified; E11.22 Type 2 diabetes mellitus with diabetic chronic kidney disease; N18.30 Chronic kidney disease, stage 3 unspecified; D63.1 Anemia in chronic kidney disease; E66.09 Other obesity due to excess calories; K21.9 Gastro-esophageal reflux disease without esophagitis; M19.90 Unspecified osteoarthritis, unspecified site; Z98.890 Other specified postprocedural states; Z79.899 Other long term (current) drug therapy; Z88.8 Allergy status to other drugs, medicaments and biological substances; Z79.84 Long term (current) use of oral hypoglycemic drugs; Z68.30 Body mass index [BMI] 30.0-30.9, adult; Z79.4 Long term (current) use of insulin
CPT/HCPCS: 00142; A9270-GY; J1100; J2250; J3370; J3490; V2632

== ENCOUNTER 2024-04-15 01:18 | Emergency (ER) | payer MEDICARE, OTHER ==
[2024-04-15 01:27] LABS: BASOPHILS PERCENT AUTO 0.2 % (0.0-1.0); EOSINOPHILS PERCENT AUTO 0.8 % (1.0-3.0); HEMATOCRIT 43.2 % (40.0-54.0); HEMOGLOBIN 14.3 g/dL (14.0-18.0); LYMPHOCYTES PERCENT AUTO 7.4 % (20.5-50.1); MEAN CORPUSCULAR HEMOGLOBIN 30.4 pg (27.0-34.0); MEAN CORPUSCULAR HGB CONC 33.1 g/dL (33.0-35.0); MEAN CORPUSCULAR VOLUME 91.7 fL (80-100); MONOCYTES PERCENT AUTO 8.3 % (2-8); NEUTROPHILS PERCENT AUTO 83.3 % (42.2-75.2); PLATELET COUNT,PLT 183 10^3/uL (150-450); RED BLOOD CELL COUNT 4.71 10^6/uL (4.6-6.2); WHITE BLOOD CELL COUNT,WBC 12.5 10^3/uL (5.0-10.0)
[2024-04-15 01:47] LABS: ALANINE AMINOTRANSFERASE,ALT 25 U/L (16-63); ALBUMIN 3.2 g/dL (3.4-5.0); ALKALINE PHOSPHATASE 150 U/L (46-116); ANION GAP 13.7 mEq/L (7-13); ASPARTATE AMNIOTRANSFERASE,AST 102 U/L (15-37); BLOOD UREA NITROGEN,BUN 37 mg/dL (7-18); BUN/CREATININE RATIO 17.5 (No establ ref range); CARBON DIOXIDE,CO2 27 mmol/L (21-32); CHLORIDE,CL 104 mmol/L (98-107); CREATININE 2.12 mg/dL (0.70-1.30); ESTIMATED GFR 31 mL/min (>=60); GLUCOSE RANDOM 227 mg/dL (70-99); POTASSIUM,K 4.7 mmol/L (3.5-5.1); PROTEIN TOTAL,TP 6.4 g/dL (6.4-8.2); SODIUM,NA 140 mmol/L (136-145)
[2024-04-15] MEDS: Acetaminophen 325 MG Tab PO ONE (02:42)
[2024-04-15] MEDS: Sodium Chloride 0.9% 500 ML IV ONE (02:42)
[2024-04-15] MEDS ORDERED: Ciprofloxacin in D5W 400 MG in Premix Bag 1 BAG IV ONE (02:57)
[2024-04-15] MEDS ORDERED: metroNIDAZOLE/Normal Saline 500 MG in Premix Bag 1 BAG IV ONE (02:57)
[2024-04-15] MEDS: Piperacillin/Tazobactam 3.375 GM in Sodium Chloride 0.9% 100 ML IV ONE (03:21)
== END 2024-04-15 04:07 ==
LOC: DL.ED 01:18
DX: K80.01 Calculus of gallbladder with acute cholecystitis with obstruction (principal); E80.6 Other disorders of bilirubin metabolism; D72.825 Bandemia; R79.89 Other specified abnormal findings of blood chemistry; I12.9 Hypertensive chronic kidney disease with stage 1 through stage 4 chronic kidney disease, or unspecified chronic kidney disease; N18.9 Chronic kidney disease, unspecified; E78.00 Pure hypercholesterolemia, unspecified; K21.9 Gastro-esophageal reflux disease without esophagitis; M19.90 Unspecified osteoarthritis, unspecified site; E11.22 Type 2 diabetes mellitus with diabetic chronic kidney disease; E66.9 Obesity, unspecified; Z95.5 Presence of coronary angioplasty implant and graft; Z88.8 Allergy status to other drugs, medicaments and biological substances; Z79.82 Long term (current) use of aspirin; Z79.4 Long term (current) use of insulin; Z79.899 Other long term (current) drug therapy
CPT/HCPCS: 36415; 74176; 80053; 85025; 96365; 99285; A9270; J2543; J3490; J7040

== ENCOUNTER 2024-12-07 16:24 | Emergency (ER) | payer MEDICARE, OTHER ==
[2024-12-07 16:59] LABS: PLATELET COUNT,PLT 303 10^3/uL (150-450); RED BLOOD CELL COUNT 3.87 10^6/uL (4.6-6.2); WHITE BLOOD CELL COUNT,WBC 8.8 10^3/uL (5.0-10.0)
[2024-12-07 17:06] LABS: APPEARANCE,URINE SLIGHTLY CLOUDY (CLEAR); GLUCOSE,URINE 500 (NEGATIVE); OCCULT BLOOD,URINE TRACE-INTACT (NEGATIVE)
[2024-12-07 17:06] LABS: BASOPHILS PERCENT AUTO 0.3 % (0.0-1.0); EOSINOPHILS PERCENT AUTO 1.5 % (1.0-3.0); LYMPHOCYTES PERCENT AUTO 15.6 % (20.5-50.1); MONOCYTES PERCENT AUTO 11.8 % (2-8); NEUTROPHILS PERCENT AUTO 70.8 % (42.2-75.2)
[2024-12-07 17:15] LABS: ALANINE AMINOTRANSFERASE,ALT 9.0 U/L (16-63); ASPARTATE AMNIOTRANSFERASE,AST 13.0 U/L (15-37); BILIRUBIN TOTAL 0.5 mg/dL (0.2-1.0); BLOOD UREA NITROGEN,BUN 31.0 mg/dL (7-18); CARBON DIOXIDE,CO2 27.0 mmol/L (21-32); CHLORIDE,CL 105.0 mmol/L (98-107); CREATININE 1.49 mg/dL (0.70-1.30); EST CRCL DRUG DOSING (CG) 37.62 mL/min; GLUCOSE RANDOM 154.0 mg/dL (70-99); POTASSIUM,K 4.1 mmol/L (3.5-5.1); PROTEIN TOTAL,TP 7.0 g/dL (6.4-8.2); SODIUM,NA 140.0 mmol/L (136-145)
[2024-12-07 17:17] LABS: LACTIC ACID 1.1 mmol/L (0.4-2.0)
[2024-12-07 17:18] LABS: A/G RATIO 0.56; ESTIMATED GFR 47.0 mL/min (>=60)
[2024-12-07 17:19] LABS: EPITHELIAL CELLS,URINE FEW /HPF (NOT SEEN)
[2024-12-07] MEDS: Iopamidol 612 MG/ML 100 ML Bottle IVPUSH ONE (17:19)
[2024-12-07 17:20] LABS: YEAST,URINE MODERATE /HPF (NOT SEEN)
[2024-12-07 17:25] LABS: BAND PERCENT MAN 2 %; EOSINOPHILS PERCENT MAN 1 % (1-3); LYMPHOCYTES PERCENT MAN 16 % (20-50); MONOCYTES PERCENT MAN 8 % (2-8); SEG NEUTROPHILS PERCENT MAN 73 % (42-75)
[2024-12-07] MEDS ORDERED: 50% Dextrose in Water 50 ML Syringe IVPUSH PRN (20:40)
[2024-12-07] MEDS ORDERED: Ondansetron 4 MG/2 ML SDV IVPUSH PRN (21:10)
[2024-12-07] MEDS: Insulin Glarg,Human.Rec.Analog 100 Unit/ML 10 ML Vial SUBCUT SCH (21:33)
[2024-12-08] MEDS: Sodium Chloride 0.9% 10 ML Syringe FLUSH PRN (08:36)
[2024-12-08 19:42] LABS: BASOPHILS PERCENT AUTO 0.3 % (0.0-1.0); EOSINOPHILS PERCENT AUTO 2.2 % (1.0-3.0); LYMPHOCYTES PERCENT AUTO 17.5 % (20.5-50.1); MONOCYTES PERCENT AUTO 13.2 % (2-8); NEUTROPHILS PERCENT AUTO 66.8 % (42.2-75.2); PLATELET COUNT,PLT 256 10^3/uL (150-450); RED BLOOD CELL COUNT 3.42 10^6/uL (4.6-6.2); WHITE BLOOD CELL COUNT,WBC 6.9 10^3/uL (5.0-10.0)
[2024-12-08 20:07] LABS: A/G RATIO 0.5; ALANINE AMINOTRANSFERASE,ALT 7.0 U/L (16-63); ASPARTATE AMNIOTRANSFERASE,AST 14.0 U/L (15-37); BILIRUBIN TOTAL 0.4 mg/dL (0.2-1.0); BLOOD UREA NITROGEN,BUN 20.0 mg/dL (7-18); CARBON DIOXIDE,CO2 27.0 mmol/L (21-32); CHLORIDE,CL 108.0 mmol/L (98-107); CREATININE 1.24 mg/dL (0.70-1.30); EST CRCL DRUG DOSING (CG) 45.2 mL/min; ESTIMATED GFR 58.0 mL/min (>=60); GLUCOSE RANDOM 126.0 mg/dL (70-99); POTASSIUM,K 4.1 mmol/L (3.5-5.1); PROTEIN TOTAL,TP 5.7 g/dL (6.4-8.2); SODIUM,NA 142.0 mmol/L (136-145)
== END 2024-12-09 18:10 ==
LOC: DL.ED 16:24
DX: K80.01 Calculus of gallbladder with acute cholecystitis with obstruction (principal); I10 Essential (primary) hypertension; E78.00 Pure hypercholesterolemia, unspecified; K21.9 Gastro-esophageal reflux disease without esophagitis; E11.9 Type 2 diabetes mellitus without complications; Z88.8 Allergy status to other drugs, medicaments and biological substances; Z79.899 Other long term (current) drug therapy; Z79.82 Long term (current) use of aspirin; Z79.4 Long term (current) use of insulin; Z79.84 Long term (current) use of oral hypoglycemic drugs
CPT/HCPCS: 36415; 74177; 80053; 81001; 82947; 83605; 85025; 86140; 96361; 96365; 96366; 96375; 96376; 99284; 99285; A9270; J1171; J1815; J2543; J7030; Q9967

== ENCOUNTER 2024-12-22 10:54 | Inpatient (IN) | payer MEDICARE, OTHER ==
[2024-12-22] MEDS ORDERED: POLYVINYL ALCOHOL OP PRN (17:34)
[2024-12-22] MEDS ORDERED: metroNIDAZOLE/Normal Saline 500 MG/100 ML Premix Bag IV SCH (17:45)
[2024-12-22] MEDS ORDERED: 50% Dextrose in Water 50 ML Syringe IVPUSH PRN (18:00)
[2024-12-22 18:11] LABS: PLATELET COUNT,PLT 361 10^3/uL (150-450); RED BLOOD CELL COUNT 3.39 10^6/uL (4.6-6.2); WHITE BLOOD CELL COUNT,WBC 11.3 10^3/uL (5.0-10.0)
[2024-12-22 18:18] LABS: BASOPHILS PERCENT AUTO 0.4 % (0.0-1.0); EOSINOPHILS PERCENT AUTO 0.4 % (1.0-3.0); LYMPHOCYTES PERCENT AUTO 9.1 % (20.5-50.1); MONOCYTES PERCENT AUTO 6.6 % (2-8); NEUTROPHILS PERCENT AUTO 83.5 % (42.2-75.2)
[2024-12-22 18:29] LABS: B-TYPE NATRIURETIC PEPTIDE,BNP 30.0 pg/ml (0-100)
[2024-12-22 18:33] LABS: ALANINE AMINOTRANSFERASE,ALT 8.0 U/L (16-63); ASPARTATE AMNIOTRANSFERASE,AST 16.0 U/L (15-37); BILIRUBIN DIRECT 0.1 mg/dL (0.0-0.2); BILIRUBIN INDIRECT 0.1; BILIRUBIN TOTAL 0.2 mg/dL (0.2-1.0); BLOOD UREA NITROGEN,BUN 39.0 mg/dL (7-18); CARBON DIOXIDE,CO2 29.0 mmol/L (21-32); CHLORIDE,CL 102.0 mmol/L (98-107); CREATININE 1.24 mg/dL (0.70-1.30); EST CRCL DRUG DOSING (CG) 46.72 mL/min; GLUCOSE RANDOM 263.0 mg/dL (70-99); POTASSIUM,K 5.2 mmol/L (3.5-5.1); PROTEIN TOTAL,TP 5.9 g/dL (6.4-8.2); SODIUM,NA 138.0 mmol/L (136-145)
[2024-12-22 18:37] LABS: A/G RATIO 0.74; ESTIMATED GFR 58.0 mL/min (>=60)
[2024-12-22 18:42] LABS: LYMPHOCYTES PERCENT MAN 7 % (20-50); MONOCYTES PERCENT MAN 5 % (2-8); SEG NEUTROPHILS PERCENT MAN 88 % (42-75)
[2024-12-22 19:00] LABS: FOLIC ACID 4.7 ng/mL (8.6-58.9)
[2024-12-22] MEDS: metroNIDAZOLE/Normal Saline 500 MG/100 ML Premix Bag IV SCH (19:10)
[2024-12-22] MEDS: Insulin Glarg,Human.Rec.Analog 100 Unit/ML 10 ML Vial SUBCUT SCH (20:11)
[2024-12-22] MEDS: Heparin Sodium 5,000 Units/ML Vial SUBCUT SCH (23:09)
[2024-12-23 06:41] LABS: PLATELET COUNT,PLT 330 10^3/uL (150-450); RED BLOOD CELL COUNT 3.16 10^6/uL (4.6-6.2); WHITE BLOOD CELL COUNT,WBC 11.0 10^3/uL (5.0-10.0)
[2024-12-23 06:48] LABS: BLOOD UREA NITROGEN,BUN 39.0 mg/dL (7-18); CARBON DIOXIDE,CO2 27.0 mmol/L (21-32); CHLORIDE,CL 104.0 mmol/L (98-107); CREATININE 0.99 mg/dL (0.70-1.30); EST CRCL DRUG DOSING (CG) 58.52 mL/min; ESTIMATED GFR 77.0 mL/min (>=60); GLUCOSE RANDOM 171.0 mg/dL (70-99); POTASSIUM,K 4.4 mmol/L (3.5-5.1); SODIUM,NA 139.0 mmol/L (136-145)
[2024-12-23 07:00] LABS: BASOPHILS PERCENT AUTO 0.4 % (0.0-1.0); EOSINOPHILS PERCENT AUTO 1.1 % (1.0-3.0); LYMPHOCYTES PERCENT AUTO 21.4 % (20.5-50.1); LYMPHOCYTES PERCENT MAN 21 % (20-50); MONOCYTES PERCENT AUTO 10.2 % (2-8); MONOCYTES PERCENT MAN 12 % (2-8); NEUTROPHILS PERCENT AUTO 66.9 % (42.2-75.2); SEG NEUTROPHILS PERCENT MAN 66 % (42-75)
[2024-12-23] MEDS: Cholecalciferol (Vitamin D3) 25 MCG Tab PO SCH (09:18)
[2024-12-23] MEDS: metroNIDAZOLE/Normal Saline 500 MG/100 ML Premix Bag IV SCH (09:24)
[2024-12-23] MEDS: metroNIDAZOLE/Normal Saline 100 ML IV SCH (09:34)
[2024-12-24] MEDS: Sodium Chloride 0.9% 10 ML Syringe FLUSH PRN (09:16)
[2024-12-28 09:14] LABS: PLATELET COUNT,PLT 170 10^3/uL (150-450); RED BLOOD CELL COUNT 3.58 10^6/uL (4.6-6.2); WHITE BLOOD CELL COUNT,WBC 7.0 10^3/uL (5.0-10.0)
[2024-12-28 09:16] LABS: BASOPHILS PERCENT AUTO 0.1 % (0.0-1.0); EOSINOPHILS PERCENT AUTO 3.4 % (1.0-3.0); LYMPHOCYTES PERCENT AUTO 18.3 % (20.5-50.1); MONOCYTES PERCENT AUTO 10.6 % (2-8); NEUTROPHILS PERCENT AUTO 67.6 % (42.2-75.2)
[2024-12-28 09:24] LABS: ALANINE AMINOTRANSFERASE,ALT 7.0 U/L (16-63); ASPARTATE AMNIOTRANSFERASE,AST 11.0 U/L (15-37); BILIRUBIN TOTAL 0.4 mg/dL (0.2-1.0); BLOOD UREA NITROGEN,BUN 34.0 mg/dL (7-18); CARBON DIOXIDE,CO2 29.0 mmol/L (21-32); CHLORIDE,CL 103.0 mmol/L (98-107); CREATININE 1.21 mg/dL (0.70-1.30); EST CRCL DRUG DOSING (CG) 47.88 mL/min; GLUCOSE RANDOM 187.0 mg/dL (70-99); POTASSIUM,K 4.7 mmol/L (3.5-5.1); PROTEIN TOTAL,TP 5.6 g/dL (6.4-8.2); SODIUM,NA 136.0 mmol/L (136-145)
[2024-12-28 09:27] LABS: A/G RATIO 0.87; ESTIMATED GFR 60.0 mL/min (>=60)
[2024-12-28 09:58] LABS: BAND PERCENT MAN 2 %; EOSINOPHILS PERCENT MAN 3 % (1-3); LYMPHOCYTES PERCENT MAN 19 % (20-50); MONOCYTES PERCENT MAN 7 % (2-8); SEG NEUTROPHILS PERCENT MAN 69 % (42-75)
[2024-12-28 10:17] LABS: SEDIMENTATION RATE MANUAL 44 mm/hr (0-15)
[2024-12-28 11:03] LABS: GAMMA GLUTAMYL TRANSFERASE,GGT 93.0 U/L (15-85)
[2024-12-28] MEDS: Iopamidol 612 MG/ML 100 ML Bottle IVPUSH ONE (11:58)
[2024-12-28] MEDS: Magnesium Sulfate/D5W 1 GM/100 ML BAG IV SCH (16:05)
[2024-12-29 06:35] LABS: BASOPHILS PERCENT AUTO 0.3 % (0.0-1.0); EOSINOPHILS PERCENT AUTO 3.7 % (1.0-3.0); LYMPHOCYTES PERCENT AUTO 24.7 % (20.5-50.1); MONOCYTES PERCENT AUTO 15.8 % (2-8); NEUTROPHILS PERCENT AUTO 55.5 % (42.2-75.2); PLATELET COUNT,PLT 169 10^3/uL (150-450); RED BLOOD CELL COUNT 3.21 10^6/uL (4.6-6.2); WHITE BLOOD CELL COUNT,WBC 6.0 10^3/uL (5.0-10.0)
[2024-12-29 06:36] LABS: ALANINE AMINOTRANSFERASE,ALT 7.0 U/L (16-63); ASPARTATE AMNIOTRANSFERASE,AST 9.0 U/L (15-37); BILIRUBIN DIRECT 0.1 mg/dL (0.0-0.2); BILIRUBIN INDIRECT 0.1; BILIRUBIN TOTAL 0.2 mg/dL (0.2-1.0); BLOOD UREA NITROGEN,BUN 35.0 mg/dL (7-18); CARBON DIOXIDE,CO2 29.0 mmol/L (21-32); CHLORIDE,CL 106.0 mmol/L (98-107); CREATININE 1.18 mg/dL (0.70-1.30); EST CRCL DRUG DOSING (CG) 49.1 mL/min; GLUCOSE RANDOM 145.0 mg/dL (70-99); POTASSIUM,K 4.4 mmol/L (3.5-5.1); PROTEIN TOTAL,TP 5.1 g/dL (6.4-8.2); SODIUM,NA 139.0 mmol/L (136-145)
[2024-12-29 06:43] LABS: A/G RATIO 0.89; ESTIMATED GFR 62.0 mL/min (>=60)
[2025-01-01] MEDS: Nystatin Topical Powder 60 GM Bottle TOP SCH (17:27)
[2025-01-04 06:28] LABS: BASOPHILS PERCENT AUTO 0.3 % (0.0-1.0); EOSINOPHILS PERCENT AUTO 2.8 % (1.0-3.0); LYMPHOCYTES PERCENT AUTO 28.8 % (20.5-50.1); MONOCYTES PERCENT AUTO 11.3 % (2-8); NEUTROPHILS PERCENT AUTO 56.8 % (42.2-75.2); PLATELET COUNT,PLT 164 10^3/uL (150-450); RED BLOOD CELL COUNT 3.67 10^6/uL (4.6-6.2); WHITE BLOOD CELL COUNT,WBC 5.8 10^3/uL (5.0-10.0)
[2025-01-04 06:49] LABS: A/G RATIO 1.07; ALANINE AMINOTRANSFERASE,ALT 7.0 U/L (16-63); ASPARTATE AMNIOTRANSFERASE,AST 11.0 U/L (15-37); BILIRUBIN TOTAL 0.4 mg/dL (0.2-1.0); BLOOD UREA NITROGEN,BUN 44.0 mg/dL (7-18); CARBON DIOXIDE,CO2 25.0 mmol/L (21-32); CHLORIDE,CL 106.0 mmol/L (98-107); CREATININE 1.77 mg/dL (0.70-1.30); EST CRCL DRUG DOSING (CG) 32.73 mL/min; ESTIMATED GFR 38.0 mL/min (>=60); GLUCOSE RANDOM 141.0 mg/dL (70-99); POTASSIUM,K 5.5 mmol/L (3.5-5.1); PROTEIN TOTAL,TP 6.0 g/dL (6.4-8.2); SODIUM,NA 139.0 mmol/L (136-145)
[2025-01-04] MEDS ORDERED: Sodium Chloride 0.9% 10 ML Syringe FLUSH PRN (10:43)
[2025-01-04] MEDS ORDERED: 50% Dextrose in Water 50 ML Syringe IVPUSH ONE (10:52)
[2025-01-04] MEDS: Insulin Regular, Human 100 Units/ML 10 ML Vial SUBCUT ONE (12:04)
[2025-01-04] MEDS: Albuterol 0.083% 2.5 MG/3 ML Neb Soln NEB ONE (12:04)
[2025-01-04] MEDS: Calcium Gluconate 10% 1 GM/10 ML SDV IVPUSH ONE (12:05)
[2025-01-04] MEDS: Sodium Chloride 0.9% 10 ML Syringe FLUSH SCH (12:14)
[2025-01-04] MEDS: 50% Dextrose in Water 50 ML Syringe IVPUSH ONE (13:29)
[2025-01-04 21:01] LABS: IRON,FE 67.0 ug/dL (65-175); PERCENT FE SATURATION 24.9 % (20.0-50.0)
[2025-01-05 06:48] LABS: BLOOD UREA NITROGEN,BUN 42.0 mg/dL (7-18); CARBON DIOXIDE,CO2 28.0 mmol/L (21-32); CHLORIDE,CL 105.0 mmol/L (98-107); CREATININE 1.6 mg/dL (0.70-1.30); EST CRCL DRUG DOSING (CG) 36.21 mL/min; GLUCOSE RANDOM 130.0 mg/dL (70-99); POTASSIUM,K 5.1 mmol/L (3.5-5.1); SODIUM,NA 138.0 mmol/L (136-145)
[2025-01-05 06:50] LABS: ESTIMATED GFR 43.0 mL/min (>=60)
[2025-01-06 06:55] LABS: BLOOD UREA NITROGEN,BUN 41.0 mg/dL (7-18); CARBON DIOXIDE,CO2 28.0 mmol/L (21-32); CHLORIDE,CL 107.0 mmol/L (98-107); CREATININE 1.35 mg/dL (0.70-1.30); EST CRCL DRUG DOSING (CG) 42.91 mL/min; GLUCOSE RANDOM 148.0 mg/dL (70-99); POTASSIUM,K 4.7 mmol/L (3.5-5.1); SODIUM,NA 141.0 mmol/L (136-145)
[2025-01-06 06:57] LABS: ESTIMATED GFR 53.0 mL/min (>=60)
[2025-01-07 06:36] LABS: BLOOD UREA NITROGEN,BUN 40.0 mg/dL (7-18); CARBON DIOXIDE,CO2 25.0 mmol/L (21-32); CHLORIDE,CL 108.0 mmol/L (98-107); CREATININE 1.37 mg/dL (0.70-1.30); EST CRCL DRUG DOSING (CG) 42.29 mL/min; GLUCOSE RANDOM 153.0 mg/dL (70-99); POTASSIUM,K 4.5 mmol/L (3.5-5.1); SODIUM,NA 142.0 mmol/L (136-145)
[2025-01-07 06:37] LABS: ESTIMATED GFR 52.0 mL/min (>=60)
== END 2025-01-07 10:00 | disposition home or self-care (01) | DRG 948 ==
LOC: DL.MS 17:04
PROVIDERS: ADMIT Internal Medicine; ATTEND Student in an Organized Health Care Education/Training Program
DX: R53.81 Other malaise (principal); J90 Pleural effusion, not elsewhere classified; E78.00 Pure hypercholesterolemia, unspecified; I10 Essential (primary) hypertension; K21.9 Gastro-esophageal reflux disease without esophagitis; N40.0 Benign prostatic hyperplasia without lower urinary tract symptoms; N20.0 Calculus of kidney; M19.90 Unspecified osteoarthritis, unspecified site; G20.A1 Parkinson's disease without dyskinesia, without mention of fluctuations; F32.A Depression, unspecified; E11.9 Type 2 diabetes mellitus without complications; E66.9 Obesity, unspecified; D64.9 Anemia, unspecified; H26.9 Unspecified cataract; K81.9 Cholecystitis, unspecified; K59.00 Constipation, unspecified; E87.5 Hyperkalemia; E88.09 Other disorders of plasma-protein metabolism, not elsewhere classified; E83.41 Hypermagnesemia; Z79.82 Long term (current) use of aspirin; Z88.8 Allergy status to other drugs, medicaments and biological substances; Z79.4 Long term (current) use of insulin; Z68.26 Body mass index [BMI] 26.0-26.9, adult; Z98.890 Other specified postprocedural states; Z95.5 Presence of coronary angioplasty implant and graft; Z79.899 Other long term (current) drug therapy
CPT/HCPCS: 36415; 71045; 74177; 80048; 80053; 80076; 82272; 82607; 82728; 82746; 82947; 82977; 83540; 83550; 83735; 83880; 84132; 85025; 85651; 86140; 86850; 86900; 86901; 93005; 93010; 97110-GO; 97110-GP; 97116-GP; 97161-GP; 97165-GO; 97530-GO; 97530-GP; 97535-GO; 99306; 99309; 99315; A9270-GY; J0612; J0696; J1644; J1808; J1815-GY; J1836; J3475; J3490; J7030; Q9967